=== PATIENT | male | born 1940 | race Caucasian/White ===

== ENCOUNTER 2017-06-02 09:02 | Day surgery (SDC) | payer MEDICARE, OTHER ==
[2017-06-02] MEDS ORDERED: PROPOFOL 40 ML (10:46)
[2017-06-02] MEDS ORDERED: LIDOCAINE 100 MG SYRINGE (10:47)
[2017-06-02] MEDS ORDERED: ATROPINE 1 MG/10 ML SYRINGE (10:56)
== END 2017-06-02 12:55 | disposition home or self-care (01) ==
LOC: GIL 09:02
DX: D12.6 Benign neoplasm of colon, unspecified (principal); I10 Essential (primary) hypertension; E78.5 Hyperlipidemia, unspecified
CPT/HCPCS: 45380; 88305